=== PATIENT | female | born 1940 | race Caucasian/White ===

== ENCOUNTER → 2023-08-30 14:31 | Outpatient (REF) | payer MEDICARE, SELFPAY | LOC: HWRAD 14:31 | PROVIDERS: ATTENDING PHYSICIAN Internal Medicine Cardiovascular Disease; FAMILY PHYSICIAN Internal Medicine | DX: I50.32 Chronic diastolic (congestive) heart failure (principal) | CPT/HCPCS: 71046 ==

== ENCOUNTER → 2024-03-31 10:05 | Outpatient (REF) | payer MEDICARE, SELFPAY ==
--- NOTE | 2024-03-31 13:59 | CARDSERVDEF ---
Echocardiogram with Definity completed after protocol screening completed. Allergies verified.
Patent IV site: _L antecube___
IV site flushed with 0.9% NaCl pre and post administration.
Diluted bolus method utilized to enhance visualization of ventricular andrade.
Total volume given: __3__ mL
Patient tolerated all procedures well without complications.
== END ==
LOC: HWRCS 10:05
PROVIDERS: ATTENDING PHYSICIAN Internal Medicine Cardiovascular Disease; FAMILY PHYSICIAN Internal Medicine
DX: R06.09 Other forms of dyspnea (principal); I50.32 Chronic diastolic (congestive) heart failure
CPT/HCPCS: 93306

== ENCOUNTER 2024-12-18 10:24 | Day surgery (SDC) | payer MEDICARE, SELFPAY ==
[2024-12-10 10:50] VITALS: BMI 24.8
[2024-12-10 11:11] LABS: Hematocrit 43.6 % (37.0-47.0); Hemoglobin 14.7 g/dL (12.0-16.0); Mean Corp Hgb Conc. 33.7 g/dL (33.0-37.0); Mean Corpuscular Volume 95.0 fL (81.0-99.0); Nucleated Red Blood Cells % 0 %; Platelet Count 158 10^3/uL (130-400); Red Cell Dist. Width 14.4 % (11.5-14.5)
[2024-12-10 11:33] LABS: INR 1.20; PT 15.7 Sec (11.4-14.6)
[2024-12-10 11:39] LABS: ALT (SGPT) 28 U/L (0-35); AST (SGOT) 40 U/L (14-36); Albumin 4.8 g/dl (3.5-5.0); Alkaline Phosphatase 72 U/L (38-126); Blood Urea Nitrogen 36 mg/dl (7-17); Calcium 10.5 mg/dl (8.4-10.2); Carbon Dioxide 30 mmol/L (22-30); Chloride 106 mmol/L (98-107); Estimated Creatinine Clearance 16 ml/min; Glucose 106 mg/dl (70-99); Magnesium 2.4 mg/dl (1.6-2.3); Potassium 4.4 mmol/L (3.5-5.1); Sodium 143 mmol/L (135-145); Total Protein 7.6 g/dl (6.3-8.2); eGFR 20.70
[2024-12-18] VITALS (9 sets, daily range): BP systolic 94–125; BP diastolic 53–82; BMI 24.2
--- NOTE | 2024-12-18 13:50 | ITS.CL.ABL ---
Archeologist - Ablation
Ablation
Procedure Report:
ELECTROPHYSIOLOGIC STUDY AND POSSIBLE ABLATION
DATE: 12/18/24
Primary Care Provider: Dr Domingo Ahuja
Primary Innovation Analyst: Dr Hanny Burns
INDICATION:
Symptomatic Atrial Fibrillation.
Persistent
HISTORY: See H and P.
Symptomatic AF, poorly controlled with attempted medical therapy.
She has had increased burden of atrial fibrillation on amiodarone, beta reyes. She is symptomatic in afib with fatigue and dyspnea on exertion.�
Additionally, she has HFpEF and known apical hypertrophic cardiomyopathy. Ejection fraction is 62%. 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
She is also known to have CKD, incidental finding of pericardial cyst and a large hiatal hernia versus intrathoracic stomach.
HAS-BLED: 4
Age
Abnormal Renal Function
Abnormal Liver Function
H/O Stroke ? remote
CHADSVASc: 6
CHF, HFpEF
Age
h/o Stroke, ? remote
F Gender
PRESENTING RHYTHM: Atrial Flutter
HISTORY: See H and P.
Symptomatic AF, poorly controlled with attempted medical therapy.
ANTIARRHYTHMIC DRUG: Amiodarone
ANTICOAGULATION: Abixaban
'TIME-OUT': called and confirmed.
SEDATION/ANESTHESIA: provided via the anesthesia department using general anesthesia.
PROCEDURE:
Ultrasound Guidance with real-time visualization of needle insertion and vessel patency performed by md for femoral venous Vascular Access.
Under real-time US guidance, the needle was advanced with negative pressure into the vein. The needle was seen entering the vessel lumen with a good return of dark red flow, the syringe was removed, non-pulsatile, dark red blood low was noted and
the wire was passed without difficulty, then the needle was removed. US confirmed the wire was in the vein, not going into an artery,
Images were taken and saved for the patient's permanent record. Imaging findings typical femoral venous anatomy. Direct visualization of needle puncture into the femoral vein was observed and recorded.
A decapolar CS catheter was placed within the CS for mapping and pacing.
The intracardiac ultrasound catheter was positioned in the RA for continuous intracardiac ultrasound imaging.
Heparin bolus and infusion to target ACT at 300 -350 seconds was administered. Transseptal puncture was performed. This entailed advancing a sheath with dilator into the superior vena cava and withdrawing both (monitoring intracardiac ultrasound,
fluoroscopy and tip pressure) with the tip oriented toward the atrial septum. The fossa ovalis was engaged (indicated by sudden displacement of the sheath tip as well as tenting of the fossa seen on intracardiac ultrasound).
The ApiFix transseptal system was used. Left atrial catheter position was confirmed by echocardiographic imaging and fluoroscopy followed by RF delivery using the tracx system resulting in successful LA access with pressure monitoring
demonstrating LA pressure waveforms (LA mean pressure 11 mm Hg). The sheath was advanced over the dilator and positioned in the left atrium.
The Scour Prevention Grid multipolar mapping catheter was initially positioned through the transseptal sheath for high density mapping.
The presenting rhythm is a regular atrial tachycardia at cycle length 330 ms with earliest activation at the distal coronary sinus electrode on the coronary sinus decapolar catheter.
Entrainment from the distal mid and proximal coronary sinus or outside the tachycardia circuit. Entrainment from the lateral wall of the right atrium is outside the tachycardia circuit.
Geometry and voltage mapping was performed using the Baron multipolar grid catheter. Rx Networksite-X was utilized for three-dimensional electroanatomical mapping.
A 3-D map was created using Ensite-X in Voxel mode. A 3-D reconstructed CT image was compared to the 3-D Navex map to assist in anatomic evaluation, mapping and ablation.
A high-definition three-dimensional electroanatomical activation map was performed. Tachycardia terminated with a pump of the grid catheter at the anterior dome of the left atrium. Prior to terminating the tachycardia activation mapping suggested
a micro reentrant atrial tachycardia anteriorly on the dome of the left atrium. Programmed electrical stimulation failed to reinduce the tachycardia.
Next attention was turned to PVI.
The ApiFix PFA catheter and system was used for cardiac ablation. Catheter positioning was guided and confirmed using both I.C.E. and fluoroscopy.
Ablation strategy included PVI as well as mapping for extra PV contributors to atrial fibrillation which would also be targeted if present.
High density electroanatomical three-dimensional mapping demonstrated LSPV, LIPV, RSPV, RIPV.
After accomplishing pulmonary venous isolation, mapping identified additional areas likely to be extra PV contributors to atrial fibrillation. These areas demonstrated patchy low voltage as well as complex fractionated electrograms. These areas can
be sites for the formation of rotors which can drive and maintain atrial fibrillation. These areas are known to be significant contributors to initiation and perpetuation of atrial fibrillation.
Additional energy applications/additional ablation sets targeted extra PV contributors to atrial fibrillation.
Targets for additional PFA ablation included:
LA posterior wall targeted with pulsed electric field energy isolating the posterior wall of the left atrium
After ablation of the posterior wall, additional targets were addressed:
LA inferior floor
These areas were ablated using pulsed electric field energy eliminating the extra PV contributors to atrial fibrillation.
Next attention was turned to the second tachycardia, the atrial micro reentrant tachycardia along the anterior left atrium.
Using the flower position of the femoral wave pulsed electric field ablation catheter, energy was delivered to the area which mapped to the micro reentrant atrial tachycardia.
Post ablation mapping finds entrance and exit block at each of the pulmonary veins (LSPV, LIPV, RSPV, RIPV), the LA posterior wall and at the additional lines at the inferior/floor of the LA rendering the sites no longer able to contribute to atrial
fibrillation.
Furthermore programmed electrical stimulation which included burst atrial pacing as well as delivery of atrial decremental extrastimuli down to atrial effective refractory period was unable to induce any sustained or unsustained arrhythmias.
I.C.E. :
Pre-Ablation Post-Ablation
LVEF: 55 % 55 %
WMA: none none
pericardial effusion: none none
COMPLICATIONS:
None
SUMMARY:
- Mapping and ablation to isolate the PVs resulting in electrical isolation of the pulmonary veins
- Additional AF ablation sets X after PVI (LA posterior wall, Inf/floor of the LA posterior wall) resulting in elimination of the targeted extra PV contributors to atrial fibrillation.
- Mapping and ablation of second tachycardia (left atrial micro anterior atrial tachycardia)
- 3-D Electroanatomical Mapping
- Intracardiac Ultrasound
- Ultrasound guidance for vascular access
Post ablation, I discussed today's findings and results with the patient's daughter, Natasha.
RECOMMENDATIONS:
- Observe in monitored bed.
- Maintain oral anticoagulation.
- Discontinue amiodarone
- Office visit with me is scheduled for April 24, 2025
- Continue cardiovascular care with Dr Hanny Burns
Copy to:
Dr Domingo Ahuja
Dr Hanny Burns
[2024-12-18 14:30] LABS: ACT-LR - POC 337 Seconds (116-155)
[2024-12-18 14:51] LABS: ACT-LR - POC 363 Seconds (116-155)
[2024-12-18 15:14] LABS: ACT-LR - POC 319 Seconds (116-155)
--- NOTE | 2024-12-18 17:40 | W.PN.UPDATE ---
Update Note
Progress Note Update
84 yo WF s/p PVI (same day). She denies cp, sob, cristiane diet, voiding, amb w/o dizziness, EKG SR 1deg AVB, PAC's, R fem site vascade c/d/i soft. She will resume Eliquis tonight at home. She will stop Amiodarone and continue metoprolol. Activity
restrictions reviewed. She will f/u Dr. Lugo in 3 mo. She is for d/c home after 715p if groin stable.
== END 2024-12-18 19:03 | disposition home or self-care (01) ==
LOC: CATH 10:24
PROVIDERS: ATTENDING PHYSICIAN Internal Medicine Cardiovascular Disease; FAMILY PHYSICIAN Internal Medicine; REFERRING PHYSICIAN Internal Medicine Cardiovascular Disease
DX: I48.19 Other persistent atrial fibrillation (principal); N18.9 Chronic kidney disease, unspecified; I42.2 Other hypertrophic cardiomyopathy; I48.92 Unspecified atrial flutter; I47.19 Other supraventricular tachycardia; Z79.01 Long term (current) use of anticoagulants; Z79.899 Other long term (current) drug therapy
CPT/HCPCS: C1732; C1894; C1769; C1892; 36415; 80053; 83735; 85025; 85347; 85610; 86850; 86900; 86901; 93005; 93655; 93656; 93657; C1730; C1733; C1760; C1766

== ENCOUNTER 2025-05-20 10:23 | Day surgery (SDC) | payer MEDICARE, SELFPAY ==
[2025-05-20] VITALS (11 sets, daily range): BP systolic 102–123; BP diastolic 55–74; BMI 25.8
--- NOTE | 2025-05-20 10:40 | ITS.CL.ABL ---
Handkerchief Sample Clerk - Ablation
Ablation
Procedure Report:
ELECTROPHYSIOLOGIC STUDY AND POSSIBLE ABLATION
DATE: 05/20/25
Primary Care Provider: Dr Domingo Ahuja
Primary Evp Sales: Dr Hanny Burns
INDICATION:
Symptomatic Atrial Fibrillation and atypical atrial flutter..
Persistent
HISTORY: See H and P.
Symptomatic AF, poorly controlled with attempted medical therapy
She previously underwent EP study and ablation targeting atrial fibrillation on December 18, 2024.
She underwent pulmonary vein isolation as well as left atrial posterior wall isolation and mapping and ablation of a left atrial reentrant tachycardia.
Amiodarone was discontinued at the day of ablation. (She had previously been on amiodarone since 2022)�
She describes that she felt great for the first 6 weeks or so after her ablation and then she began feeling short of breath again and has been found to be in an atypical atrial flutter with controlled ventricular rate.
Additional medical history includes�heart failure with preserved ejection fraction in the setting of apical hypertrophic cardiomyopathy and chronic kidney disease with creatinine approximately 1.9 and GFR of approximately 26.
HAS-BLED: 2
Age
Abnormal Renal Function (creatinine 1.87 with estimated GFR of 26 on blood work May 11, 2025)
CHADSVASc: 4
HFpEF (apical variant hypertrophic cardiomyopathy)
Age
F Gender
PRESENTING RHYTHM: Atypical atrial flutter with cycle length of 290 ms
HISTORY: See H and P.
Symptomatic AF, poorly controlled with attempted medical therapy.
ANTICOAGULATION: Apixaban 2.5 mg p.o. twice daily
'TIME-OUT': called and confirmed.
SEDATION/ANESTHESIA: provided via the anesthesia department using general anesthesia.
PROCEDURE:
Ultrasound Guidance with real-time visualization of needle insertion and vessel patency performed by nj for femoral venous Vascular Access.
Under real-time US guidance, the needle was advanced with negative pressure into the vein. The needle was seen entering the vessel lumen with a good return of dark red flow, the syringe was removed, non-pulsatile, dark red blood low was noted and
the wire was passed without difficulty, then the needle was removed. US confirmed the wire was in the vein, not going into an artery,
Images were taken and saved for the patient's permanent record. Imaging findings typical femoral venous anatomy. Direct visualization of needle puncture into the femoral vein was observed and recorded.
A decapolar CS catheter was placed within the CS for mapping and pacing.
The intracardiac ultrasound catheter was positioned in the RA for continuous intracardiac ultrasound imaging.
Heparin bolus and infusion to target ACT at 300 -350 seconds was administered. Transseptal puncture was performed. This entailed advancing a sheath with dilator into the superior vena cava and withdrawing both (monitoring intracardiac ultrasound,
fluoroscopy and tip pressure) with the tip oriented toward the atrial septum. The fossa ovalis was engaged (indicated by sudden displacement of the sheath tip as well as tenting of the fossa seen on intracardiac ultrasound).
Transseptal puncture was performed. Left atrial catheter position was confirmed by echocardiographic imaging, pressure monitoring (LA mean pressure 11 mm Hg) and fluoroscopy. The sheath was advanced over the dilator and positioned in the left
atrium.
The Sphere 9 multipolar mapping/ablation Sphere-9 catheter was positioned through the transseptal sheath for high density mapping.
Geometry and voltage mapping was performed using the Wine Ring[employer] mapping system for three-dimensional electroanatomical mapping.
Catheter positioning was guided and confirmed using both I.C.E. and fluoroscopy.
High density electroanatomical three-dimensional mapping demonstrated four PVs: LSPV, LIPV, RSPV, RIPV.
Mapping finds reconnection at the left inferior pulmonary vein towards its inferior medial quadrant.
Delivery of pulse electric field energy to this area reisolated the left inferior pulmonary vein.
Mapping demonstrated the other pulmonary veins to be electrically isolated. Furthermore the posterior wall of the left atrium is electrically isolated.
Mapping of his clinical tachycardia finds a macro reentrant left atrial tachycardia. Entrainment as well as electroanatomical activation mapping is consistent with mitral annular clockwise flutter.
Mapping finds a likely area of slow conduction with patchy electrograms anteriorly. This appears to be the shortest ablation line to interrupt the mitral annular flutter. Ablation connecting the mitral annulus at approximately 12:00 and a 30
degree DAVE position back to the area of patchy and no electrograms towards the dome failed to interrupt or change the tachycardia. Next ablation was performed from the left inferior pulmonary vein to the mitral valve annulus using pulsed electric
field energy closure to the pulmonary vein and radiofrequency energy delivery closer to the annulus. Similarly this failed to interrupt or change the tachycardia. Mapping suggested a gap in
the mitral annular line. A single ablation lesion just beneath the ostium of the left atrial appendage slowed and then terminated the tachycardia. Additional ablation from this area down to the mitral valve annulus was performed. Differential
pacing found bidirectional block at the mitral annular ablation lines (left inferior pulmonary vein to the mitral annulus and left atrial appendage ostium down to the mitral annulus).
Programmed electrostimulation including burst atrial pacing as well the delivery of decremental extrastimuli down to atrial effective refractory period and no sustained arrhythmias could be induced.
Remapping of the pulmonary veins and posterior wall finds entrance and exit block.
I.C.E. :
Pre-Ablation Post-Ablation
LVEF: 55 % 55 %
WMA: none none
Pericardial effusion: none none
LA Pressure (mmHg) 11
COMPLICATIONS:
none
SUMMARY:
- Mapping and ablation to isolate the PVs resulting in electrical isolation of the pulmonary veins
- Mapping and ablation of second tachycardia (mitral annular flutter) terminating the tachycardia and then rendering it non-inducible with programmed electrical stimulation
- 3-D Electroanatomical Mapping
- Intracardiac Ultrasound
- Ultrasound guidance for vascular access
Post ablation, I discussed today's findings and results with the patient's daughter, Natasha.
RECOMMENDATIONS:
- Observe in monitored bed.
- Maintain oral anticoagulation.
*Given that both an anterior and and inferior mitral annular ablation line was created, I am concerned the left atrial appendage is electrically isolated and I would maintain lifelong oral anticoagulation.
- Office visit with me is scheduled for August 06, 2025.
- Continue cardiovascular care with Dr. Hanny Burns, office visit is scheduled for September 18, 2025.
Copy to:
Primary Care Provider: Dr Domingo Ahuja
Primary Evp Sales: Dr Hanny Burns
[2025-05-20 13:39] LABS: ACT-LR - POC 332 Seconds (116-155)
[2025-05-20 14:01] LABS: ACT-LR - POC 374 Seconds (116-155)
[2025-05-20] MEDS: LASIX 40 MG IV (14:56)
--- NOTE | 2025-05-20 16:07 | W.PN.UPDATE ---
Update Note
Progress Note Update
85 yo WF s/p PVI (same day). She feels great, denies cp, sob, cristiane diet, voiding, EKG SR 1 deg AVB, R fem site vascade c/d/i no HT. She will resume Eliquis tonight after 830p. Activity restrictions reviewed. She will f/u Ana in 3 mo. She is for
d/c home after 520p if groin stable.
== END 2025-05-20 17:35 | disposition home or self-care (01) ==
LOC: CATH 10:23
PROVIDERS: ATTENDING PHYSICIAN Internal Medicine Cardiovascular Disease; FAMILY PHYSICIAN Internal Medicine; OTHER PHYSICIAN Internal Medicine Cardiovascular Disease
DX: I48.19 Other persistent atrial fibrillation (principal); I48.4 Atypical atrial flutter; I42.2 Other hypertrophic cardiomyopathy; I44.0 Atrioventricular block, first degree; Z79.01 Long term (current) use of anticoagulants; I47.19 Other supraventricular tachycardia; N18.9 Chronic kidney disease, unspecified; I50.30 Unspecified diastolic (congestive) heart failure
CPT/HCPCS: C1766; C1730; C1892; C1759; C1733; 85347; 86850; 86900; 86901; 93005; 93655; 93656; C1760; C1894